=== PATIENT | male | born 1965 | race Caucasian/White ===

== ENCOUNTER 2022-01-06 08:07 | Emergency (ER) | payer BC ==
[~2022-01-06] VITALS: Ht 180.3 cm; Wt 102.1 kg
[2022-01-06 09:23] LABS: HEMOGLOBIN 14.7 gm/dl (14.0-17.5); RED BLOOD COUNT 5.11 M/UL (4.20-5.50); WHITE BLOOD COUNT 12.3 K/UL (4.5-11.0)
== END 2022-01-06 17:10 | disposition short-term general hospital (02) ==
LOC: ER1 08:07
PROVIDERS: Emergency Medicine
DX: K59.00 Constipation, unspecified (principal); Z20.822 Contact with and (suspected) exposure to COVID-19
CPT/HCPCS: 71045; 74018; 80053; 83690; 83735; 85025; 96374; 96375; 99285; J1885; J2270; J2405; J3480; J7030; Q9967; U0002